=== PATIENT | male | born 2000 | race African-American/Black ===

== ENCOUNTER 2022-01-17 08:52 | Outpatient (CLI) | payer OTHER ==
[2022-01-17 10:14] VITALS: BP 146/70
--- NOTE | 2022-01-17 10:14 | SLEEP CARE CONSULTATION ---
Information from patient questionnaire entered by Donny Bah. I have reviewed and concur with the information entered by Donny Bah. This document represents the service I personally performed and the decisions made by me, Tamar Mercedes ARNP. History of Present Illness Service Date and Time: 01/17/2022 0852 Reason for Visit: New patient Chief Complaint: reports: Unrefreshed sleep, Snoring, Excessive daytime sleepiness, Frequent awakenings at night Date of Onset: ONE MONTH Usual bedtime: 830PM Time it takes to fall asleep: 1-2 HOURS Snores at night: Yes Observed to quit breathing while asleep: No Sleeps alone due to snoring: No Number of times waking at night: 3-5 Reasons for waking at night: reports: Bathroom, Other (unknown reason; sometimes waking up feeling short of breath with heart racing) Toss, Turn, or Twitch while sleeping: Yes Recalls having dreams: Yes Usually gets out of bed at: 5AM; weekends 07-0800 Feels refreshed in the morning: No Morning headache: Yes (RESOLVES 3-5 HOURS AFTER WAKING) Sleepy or fatigued during the day: Yes Ever fallen asleep while driving: No Takes day naps: No Dreams during day naps: No Prior sleep studies: No Additional HPI information: I had the pleasure of seeing GLADYS SHAH today regarding the possibility of him having a sleep disorder. His current complaints are unrefreshed sleep, snoring, excessive daytime sleepiness and frequent night awakenings. He states in the past month he has been waking up with headaches. He is waking up several times in the middle of the night and with a sore throat. He also wakes up with his throat dry at night and in the morning. His roommate has told him he snores loudly. The headaches are behind eye on the right side and last about 3-4 hours. He takes Tylenol or Ibuprofen for the headaches but this does not usually help much. He normally does not wake up feeling rested and is tired throughout the day. He does not normally take naps. He states he will occasionally wake himself up feeling short of air and his heart is racing. - Parasomnia Symptoms Ever been unable to move upon waking from sleep: No Walks in sleep: No Talks in sleep: No Ever acted out dreams in sleep: No Ever felt weak in the knees when startled or emotional: No Bothered by creepy, crawly, restless sensations in legs: No Problems with memory or concentration: Yes (hard to focus, more concentration) Subjective Initial [place] Sleepiness Scale score: 16 (01/2022) Social History The patient's occupation is a AM. Patient is Single and lives in . Have you smoked in the past 12 months: No Alcohol use: Yes Alcohol amount and frequency: 2 DRINKS, 2-3 TIMES PER WEEK Caffeine use: Yes Caffeine amount and frequency: 1 DRINK, 5 TIMES PER WEEK Family History Family history of sleep disordered breathing: Yes Family Hx Sleep Apnea: Mother: Snoring, Sibling: Snoring, Grandparent: Snoring Allergies and Home Medications Known drug allergies: No Drug allergies reviewed: Yes (NKDA) Home medication list reviewed: Yes (no daily medications or supplements) Allergy and home medication list: Medications: Ibuprofen, prn Tylenol, prn Review of Systems Weight loss over past 5 years: 50 POUNDS Cardiovascular: denies: high blood pressure Gastrointestinal: denies: heartburn Neurological: reports: headaches (HEADACHES ARE UPON WAKING). denies: head trauma Psychiatric: denies: Attention Deficit Hyperactivity, anxiety, depression Ear/Nose/Throat: reports: dry mouth/throat (DRY MOUTH WHEN WAKING IN MIDDLE OF NIGHT OR MORNING), injury to nose (hit on nose, bloody, no fx when playing football in school), wisdom teeth removed. denies: tonsillectomy Endocrine: denies: thyroid disease Immunologic: denies: allergies to food or environment Physical Exam Vital signs obtained and entered by: MEGHANA, LAST PULLER Blood Pressure: 146/70 (RIGHT ARM ) Cuff size: regular Heart Rate: 94 O2 Saturation: 98 Height: 5 ft 6 in Weight: 173 lb Body Mass Index: 27.9 BMI Classification: Overweight Neck circumference: 15.25 (inches) Nostrils: patent to airflow Mouth and throat: normal Soft palate: long Hard palate: normal Uvula: normal, edematous Uvula visualization: 100% Mallampati Class I Tongue: normal in size Tonsils: small Neck: normal w/o lymphadenopathy or thyromegaly Heart: regular rate and rhythm Lungs: clear bilaterally Impression and Plan 1. Suspected Obstructive Sleep Apnea-Hypopnea Syndrome, as suggested by a history of loud and irregular snoring, morning headache, frequent awakening during the night, unrefreshed sleep, cognitive impairment, and excessive daytime sleepiness. Narrow oropharynx and obesity are common predisposing factors for obstructive sleep apnea-hypopnea syndrome. I recommend proceeding to polysomnography to confirm the diagnosis and to assess severity. If the patient has significant sleep disordered breathing, a manual CPAP titration study will also be performed to find the optimal treatment pressure. I informed the patient of what the sleep studies involve and after some discussion, obtained agreement to proceed. The pathophysiology of obstructive sleep apnea-hypopnea syndrome was discussed with the patient and health risks of cardiovascular and cerebrovascular disease if not treated. Risks of drowsy driving discussed in detail and patient advised to avoid long distance driving and to anchor tack puller at the first sign of drowsiness. Patient agreed to plan. * Schedule polysomnography * Avoid long distance driving or driving when feeling sleepy. * Avoid alcohol, sedative and muscle relaxant around bedtime. * Attempt to lose weight. * Review instructions provided by trained office staff on how to prepare for the sleep study. * Return for follow-up after sleep study completed. Counseling Topics: Weight loss health impact Visit Type: In Office Time Spent with Patient (minutes): 30 Provider Statement: I spent 100% of the Face to Face Visit with the patient with greater than 50% spent counseling the patient and coordination of care.
== END 2022-01-17 08:53 | disposition home or self-care (01) ==
LOC: SC 08:52
PROVIDERS: ATTEND Nurse Practitioner Family
DX: R06.83 Snoring (principal); G47.8 Other sleep disorders; R51.9 Headache, unspecified; G47.10 Hypersomnia, unspecified; E66.3 Overweight; Z68.27 Body mass index [BMI] 27.0-27.9, adult
CPT/HCPCS: 99203; 99212

== ENCOUNTER 2022-02-02 19:11 | Outpatient (CLI) | payer OTHER | END 2022-02-02 19:12 | disposition home or self-care (01) | LOC: SC 19:11 | PROVIDERS: ATTEND Nurse Practitioner Family | DX: G47.31 Primary central sleep apnea (principal); G47.61 Periodic limb movement disorder | CPT/HCPCS: 95810 ==

== ENCOUNTER 2022-02-18 14:26 | Outpatient (CLI) | payer OTHER ==
[2022-02-18 15:29] VITALS: BP 136/86
--- NOTE | 2022-02-18 15:29 | SLEEP CARE CONSULTATION ---
Information from patient questionnaire entered by Donny Bah. I have reviewed and concur with the information entered by Donny Bah. This document represents the service I personally performed and the decisions made by , Tamar Mercedes ARNP. History of Present Illness Service Date and Time: 02/18/2022 1426 Initial [place] Sleepiness Scale score: 16 (01/2022) Current [place] Sleepiness Scale score: 15 (02/18/22) Additional HPI information: GLADYS SHAH returns for follow up and results of the recently performed polysomnography. I explained the pathophysiology behind obstructive sleep apnea. We then spent quite a bit of time discussing different treatment options. For mild obstructive sleep apnea, surgery and oral appliance are alternatives to nasal CPAP therapy but in moderate or severe cases, nasal CPAP is the most effective and reliable treatment. Because apnea is primarily in supine position, then positional management therapy could be effective. Methods discussed such as positioning with pillows to prevent supine sleep. I reviewed the impact of weight changes on sleep apnea and strongly recommended losing weight. After some discussion, the patient opted to go with the nasal CPAP therapy. Nasal autoCPAP set at 4-15 cmH20 will be ordered with rationale explained. A manual titration study will be ordered if unable to find optimal pressure with office adjustments. I explained how CPAP machine works and what to expect when using the machine. Using CPAP every night in order to get used to it was emphasized. Patient advised to put CPAP mask on before getting into bed so as not to fall asleep without CPAP. To assist acclimation to CPAP use, it could also be used for a short time during day while reading or watching TV. The patient was instructed to call the CPAP supplier to discuss any mechanical problem that may occur. If the mask given is uncomfortable or is difficult to keep on through the night even with adjustment, contact the CPAP supplier as many will replace with another mask style if notified before 30 days. If snoring or perceives is not getting enough air or too much air from the machine, notify this office. Patient does not drink alcohol. Patient was cautioned about risks of drowsy driving until sleepiness symptoms resolve. Patient denies drowsy driving. Sleep Study - Results Type of Sleep Study: Polysomnography (DONE ON 02/02/22) Prior sleep studies: No Polysomnography/Home Sleep Study results: IMPRESSION: The quality of the study is good. The patient had reduced sleep efficiency due to frequent and prolonged awakenings all throughout the night. The sleep architecture was abnormal for sleep fragmentation and reduced amount of time spent in REM and slow wave sleep (N3). Respiratory monitoring showed moderate central sleep apnea-hypopnea (AHI = 27.6) associated with frequent arousals, oxyhemoglobin desaturation and mild hypoxia (tabatha oxygen saturation of 88%). The respiratory events occurred more frequently during supine sleep (supine AHI = 49.4; non-supine = 7.47). Snore was infrequent and light in intensity. There was severe periodic leg movement of sleep contributing to the sleep fragmentation. Cardiac rhythm was normal sinus rhythm without significant arrhythmia. No abnormal behavior (parasomnia) observed during the night. Allergies and Home Medications Home medication list reviewed: Yes (no changes) Review of Systems Review of systems same as previous: Yes (no changes) Physical Exam Vital signs obtained and entered by: FRANCY KOWALSKI Blood Pressure: 136/86 (right arm ) Cuff size: regular Heart Rate: 80 O2 Saturation: 98 Height: 5 ft 6 in Weight: 171 lb Body Mass Index: 27.6 BMI Classification: Overweight Impression and Plan 1. Central Sleep Apnea-Hypopnea Syndrome, moderate, with lowest oxygen saturation of 88%. Obviously this is the cause of the patients symptoms of unrefreshed sleep, and excessive daytime sleepiness. As mentioned above, the patient will be started on nasal autoCPAP therapy with pressure set at 4-15 cmH2 O. A manual titration study will be completed if unable to find optimal treatment pressure with office adjustments. Compliance guidelines also reviewed. A copy of compliance guidelines will be given for reference at check out. Because the apnea is more severe supine, I instructed to avoid sleeping supine using pillow positioning until able to start CPAP use. 2. Periodic limb movement, severe, that did contribute to fragmentation of patients sleep. Periodic limb movement of sleep (PLMS) is characterized by episodes of repetitive limb movements that occur during sleep and usually involve the lower limbs. Caffeine can aggravate PLMS and should be avoided. Sleep hygiene methods can also improve sleep as well as lifestyle changes such as regular exercise. Patient was advised that no treatment is needed at this time. If symptoms increase, then further evaluation is indicated. * Nasal auto CPAP therapy, pressure at 4-15 cm H2O. * Attempt to lose weight. * Avoid alcohol consumption near bedtime. * Avoid supine sleep until using CPAP. * The patient is again cautioned about driving until sleepiness completely resolves. * Return one month after CPAP obtained. I will assess response to therapy and compliance at that time. Counseling Topics: Sleeping position, Weight loss health impact Visit Type: In Office Time Spent with Patient (minutes): 21 Provider Statement: I spent 100% of the Face to Face Visit with the patient with greater than 50% spent counseling the patient and coordination of care.
== END 2022-02-18 14:27 | disposition home or self-care (01) ==
LOC: SC 14:26
PROVIDERS: ATTEND Nurse Practitioner Family
DX: G47.31 Primary central sleep apnea (principal); G47.61 Periodic limb movement disorder; E66.3 Overweight; Z68.27 Body mass index [BMI] 27.0-27.9, adult
CPT/HCPCS: 99212; 99213

== ENCOUNTER 2022-05-27 11:17 | Outpatient (CLI) | payer OTHER ==
[2022-05-27 11:54] VITALS: BP 142/92
--- NOTE | 2022-05-27 11:54 | SLEEP CARE CONSULTATION ---
Information from patient questionnaire entered by Rosalba Dias. I have reviewed and concur with the information entered by Rosalba Dias. This document represents the service I personally performed and the decisions made by , Tamar Mercedes ARNP. History of Present Illness Service Date and Time: 05/27/2022 1117 Previous diagnosis: Moderate, Central Sleep Apnea-Hypopnea Syndrome AHI: 27.6 (in 2021) Reason for follow up: first compliance Equipment type: CPAP (RESMED Airsense 11) Equipment obtained from: Other ([facility]; got initial supplies) Mask style: Full face Mask brand: [employer] (Luba) Backup mask available: No (will keep old mask when replaced) Last cushion change: 1 month+ Prior sleep studies: No Type of Sleep Study: Polysomnography (DONE ON 02/02/22) HPI additional information: GLADYS SHAH was diagnosed to have moderate, AHI 27.6, central sleep apnea- hypopnea syndrome and returned today for CPAP therapy first compliance follow- up. Sleep Study - Results Type of Sleep Study: Polysomnography (DONE ON 02/02/22) Prior sleep studies: No CPAP Compliance Data - Data Reviewed with Patient Average duration of nightly device use: 4 hours 49 minutes Compliance rate %: 87 (30/30 days used) Current pressure setting (cmH2O): 4-15 (median 5, avg 8.1, max 9.1) Average residual AHI: 6.6 Central apnea: 5.1 Obstructive apnea: 0.9 Average large leak: 0.2 LPM Subjective Patient concerns: reports: mask discomfort, mask leak noise, condensation in mask/hose (turned up humidity for dry mouth but turned back down and is resolved), nasal congestion. denies: aerophagia, air blowing in eyes, dry mouth, nose, throat, epistaxis Observed to snore while using device: No Current pressure setting perceived as: comfortable On therapy, patient: reports: sleeping better, awakening more refreshed, being more awake and alert during the day, more rested overall. denies: drowsiness while driving Initial [place] Sleepiness Scale score: 16 (01/2022) Current [place] Sleepiness Scale score: 1 (05/27/22) Allergies and Home Medications Known drug allergies: No Drug allergies reviewed: Yes (NKDA) Home medication list reviewed: Yes (no changes) Review of Systems Review of systems same as previous: Yes (no changes) Physical Exam Vital signs obtained and entered by: ROSALBA Zacarias MA Blood Pressure: 142/92 (LEFT ARM) Cuff size: regular Heart Rate: 102 O2 Saturation: 98 Height: 5 ft 6 in Weight: 168 lb 6.4 oz Weight change since last visit: 3 lb loss Body Mass Index: 27.1 BMI Classification: Overweight Impression and Plan 1. Central Sleep Apnea-Hypopnea Syndrome, moderate, with good treatment compliance and fair apnea control with mild elevation of residual AHI. On CPAP therapy, the patient has better sleep quality and is more rested overall. Patient has had some issues with his F&P Luba mask and would like to try a nasal cushion or pillows mask. I will write for a mask refitting for change in mask. He also has a slight elevation of his residual AHI with majority being central index at 5.1 and obstructive index at 0.9. The patients pressure will be changed to autoCPAP 5-7 cmH20 for elevation of residual AHI. Patient advised to contact me if pressure change is uncomfortable so that it can be adjusted. Goals for apnea control discussed. Patient's apnea severity and rationale for treatment to reduce apnea, improve sleep quality and reduce cardiovascular and cerebrovascular events was reviewed. 2. Overweight, unspecified. Currently patients BMI is 27.1. Patient has lost 3 pounds since starting the CPAP. Obesity increases the risk of apnea, CPAP pressure requirements and overall health risks especially cardiovascular and diabetes. Thus patient is advised to continue to try to lose weight. * Mask refitting for nasal cushion or pillows mask * Change auto CPAP pressure to 5-7 cmH2O * Notify me if snoring with mask or feeling that the pressure is too much or too little * Continue to try to lose weight * Call this office if any problems using CPAP * Return for follow up in 1-2 months, or sooner if concerns arise Counseling Topics: Spare mask, Weight loss health impact Visit Type: In Office Time Spent with Patient (minutes): 23 Provider Statement: I spent 100% of the Face to Face Visit with the patient with greater than 50% spent counseling the patient and coordination of care.
== END 2022-05-27 11:18 | disposition home or self-care (01) ==
LOC: SC 11:17
PROVIDERS: ATTEND Nurse Practitioner Family
DX: G47.31 Primary central sleep apnea (principal); E66.3 Overweight; Z68.27 Body mass index [BMI] 27.0-27.9, adult
CPT/HCPCS: 99212; 99213

== ENCOUNTER 2022-08-21 11:29 | Outpatient (CLI) | payer OTHER ==
[2022-08-21 10:34] VITALS: BP 130/72
--- NOTE | 2022-08-21 10:34 | SLEEP CARE CONSULTATION ---
Information from patient questionnaire entered by Rosalba Dias. I have reviewed and concur with the information entered by Rosalba Dias. This document represents the service I personally performed and the decisions made by , Tamar Mercedes ARNP. History of Present Illness Service Date and Time: 08/21/2022 1020 Previous diagnosis: Moderate, Central Sleep Apnea-Hypopnea Syndrome AHI: 27.6 (in 2021) Reason for follow up: other (2 MONTH FU ) Equipment type: CPAP (RESMED Airsense 11, s/u 02/2022) Equipment obtained from: Other ([facility]; getting supplies as needed) Mask style: Full face (Luba) Backup mask available: Yes (old mask) Last cushion change: 3 months Prior sleep studies: No Type of Sleep Study: Polysomnography (DONE ON 02/02/22) HPI additional information: GLADYS SHAH was diagnosed to have moderate, AHI 27.6, central sleep apnea- hypopnea syndrome and returns via video telehealth visit today for CPAP therapy two month follow-up. Sleep Study - Results Type of Sleep Study: Polysomnography (DONE ON 02/02/22) Prior sleep studies: No CPAP Compliance Data - Data Reviewed with Patient Average duration of nightly device use: 4 HRS 47 MIN Compliance rate %: 73 (06/21/22-08/19/22; days used) Current pressure setting (cmH2O): 5-7 (median 5.7, avg 6.8, max 6.9) Average residual AHI: 7.1 Central apnea: 4.6 Obstructive apnea: 1.6 Hypopnea: 0.6 Subjective Patient concerns: denies: aerophagia, mask discomfort, air blowing in eyes, mask leak noise, condensation in mask/hose, nasal congestion, dry mouth, nose, throat, epistaxis Observed to snore while using device: No Current pressure setting perceived as: comfortable On therapy, patient: reports: sleeping better, awakening more refreshed, being more awake and alert during the day, more rested overall. denies: drowsiness while driving Initial [place] Sleepiness Scale score: 16 (01/2022) Current [place] Sleepiness Scale score: 7 Allergies and Home Medications Known drug allergies: No Drug allergies reviewed: Yes Home medication list reviewed: Yes (no changes) Review of Systems Review of systems same as previous: Yes (no changes) Physical Exam Vital signs obtained and entered by: ROSALBA Zacarias MA Blood Pressure: 130/72 (per pt) Height: 5 ft 6 in Weight: 170 lb (per pt) Body Mass Index: 27.4 BMI Classification: Overweight Impression and Plan 1. Central Sleep Apnea-Hypopnea Syndrome, moderate, with good treatment complian ce and fair apnea control. On CPAP therapy, the patient has better sleep quality and is more rested overall. Patient has significant improvement of their sleep apnea and is satisfied with current CPAP therapy. Patient's CI is 4.6, OI 16 and HI 0.6 with minimal large leaks. The patients pressure will be changed to autoCPAP 6-8 cmH20 for elevation of residual AHI. Patient advised to contact me if pressure change is uncomfortable so that it can be adjusted. Goals for apnea control discussed. Patient denies problems with oral dryness, nasal congestion, epistaxis, skin irritation or aerophagia. Patient's apnea severity and rationale for treatment to reduce apnea, improve sleep quality and reduce cardiovascular and cerebrovascular events was reviewed. 2. Overweight, unspecified. Currently patients BMI is 27.4. He is trying to lose weight using a diet that is cutting out white flour, etc and fats. Obesity increases the risk of apnea, CPAP pressure requirements and overall health risks especially cardiovascular and diabetes. Thus patient is advised to continue to try to lose weight. * Change auto CPAP pressure to 6-8 cmH2O * Notify me if snoring with mask or feeling that the pressure is too much or too little * Attempt to lose weight * Call this office if any problems using CPAP * Return for follow up in 3 months, or sooner if concerns arise Counseling Topics: Spare mask, Weight loss health impact Visit Type: Telehealth Video Video Type: Doximity Patient Location: Home (in car) Location of Provider: Office Patient agrees and consents to this telehealth visit type: Yes Patient agrees to have their insurance billed: Yes Time Spent with Patient (minutes): 11 Provider Statement: I spent 100% of the Telehealth Video Call with the patient with greater than 50% spent counseling the patient and coordination of care.
== END 2022-08-21 11:30 | disposition home or self-care (01) ==
LOC: SC 11:29
PROVIDERS: ATTEND Nurse Practitioner Family
DX: G47.31 Primary central sleep apnea (principal); E66.3 Overweight; Z68.27 Body mass index [BMI] 27.0-27.9, adult

== ENCOUNTER 2022-10-23 15:00 | Outpatient (CLI) | payer OTHER ==
--- NOTE | 2022-10-23 14:36 | SLEEP CARE CONSULTATION ---
Information from patient questionnaire entered by Rosalba Dias. I have reviewed and concur with the information entered by Rosalba Dias. This document represents the service I personally performed and the decisions made by me, Tamar Mercedes ARNP. History of Present Illness Service Date and Time: 10/23/2022 1400 Previous diagnosis: Moderate, Central Sleep Apnea-Hypopnea Syndrome AHI: 27.6 (in 2021) Reason for follow up: other (3 MONTH F/U) Equipment type: CPAP (RESMED Airsense 11, s/u 02/2022) Equipment obtained from: Other ([facility]; getting supplies as needed) Mask style: Full face (Luba) Backup mask available: Yes (old mask) Last cushion change: a month Prior sleep studies: No Type of Sleep Study: Polysomnography (DONE ON 02/02/22) HPI additional information: GLADYS SHAH was diagnosed to have moderate, AHI 27.6, central sleep apnea- hypopnea syndrome and returns via video telehealth visit today for CPAP therapy three month follow-up. Sleep Study - Results Type of Sleep Study: Polysomnography (DONE ON 02/02/22) Prior sleep studies: No CPAP Compliance Data - Data Reviewed with Patient Average duration of nightly device use: 5 HRS 38 MINS Compliance rate %: 84 (07/23/22-10/20/22; 89/90 days used) Current pressure setting (cmH2O): 4-6.4 Average residual AHI: 7.2 Central apnea: 4.9 Obstructive apnea: 1.5 Hypopnea: 0.6 Subjective Patient concerns: reports: mask discomfort, other (skin redness and soreness where cushion touches face). denies: aerophagia, air blowing in eyes, mask leak noise, condensation in mask/hose, nasal congestion, dry mouth, nose, throat Observed to snore while using device: No Current pressure setting perceived as: comfortable On therapy, patient: reports: sleeping better, awakening more refreshed, being more awake and alert during the day, more rested overall. denies: drowsiness while driving Initial [place] Sleepiness Scale score: 16 (01/2022) Current [place] Sleepiness Scale score: 8 (10/23/22) Allergies and Home Medications Known drug allergies: No Drug allergies reviewed: Yes Home medication list reviewed: Yes (Buspirone 15 mg BID) Review of Systems Review of systems same as previous: Yes (no changes) Physical Exam Vital signs obtained and entered by: ROSALBA Zacarias MA Blood Pressure: 123/64 (PER PT) Height: 5 ft 5 in (PER PT) Weight: 165 lb (PER PT) Body Mass Index: 27.4 BMI Classification: Overweight Impression and Plan 1. Central Sleep Apnea-Hypopnea Syndrome, moderate, with good treatment compliance and fair apnea control with mildly elevated residual AHI. On CPAP therapy, the patient has better sleep quality and is more rested overall. Patient has been getting sore with redness where the fullface cushion touches his skin. He states he washes the cushion about every other day. I encouraged him to wash the cushion nightly and look into skin barriers online. I also talked to him about getting a titration study. He has significant improvement of his sleep apnea but current pressure setting is suboptimal at this time. He voi mikayla understanding and agreement with this plan. Patient's apnea severity and rationale for treatment to reduce apnea, improve sleep quality and reduce cardiovascular and cerebrovascular events was reviewed. 2. Overweight, unspecified. Currently patients BMI is 27.4. Obesity increases the risk of apnea, CPAP pressure requirements and overall health risks especially cardiovascular and diabetes. Thus patient is advised to lose weight. * Continue auto CPAP pressure at 4-6.4 cmH2O * Titration study * Notify me if snoring with mask or feeling that the pressure is too much or too little * Attempt to lose weight * Call this office if any problems using CPAP * Return for follow up after titration study, or sooner if concerns arise Counseling Topics: Spare mask, Weight loss health impact Visit Type: Telehealth Video Video Type: Isamar Patient Location: Home Location of Provider: Office Patient agrees and consents to this telehealth visit type: Yes Patient agrees to have their insurance billed: Yes Time Spent with Patient (minutes): 20 Provider Statement: I spent 100% of the Telehealth Video Call with the patient with greater than 50% spent counseling the patient and coordination of care.
[2022-10-23 14:40] VITALS: BP 123/64
== END 2022-10-23 15:01 | disposition home or self-care (01) ==
LOC: SC 15:00
PROVIDERS: ATTEND Nurse Practitioner Family
DX: G47.31 Primary central sleep apnea (principal); E66.3 Overweight; Z68.27 Body mass index [BMI] 27.0-27.9, adult

== ENCOUNTER 2023-06-24 14:15 | Outpatient (CLI) | payer OTHER ==
--- NOTE | 2023-06-24 10:24 | SLEEP CARE CONSULTATION ---
Information from patient questionnaire entered by Rosalba Dias. I have reviewed and concur with the information entered by Rosalba Dias. This document represents the service I personally performed and the decisions made by , Tamar Mercedes ARNP. History of Present Illness Service Date and Time: 06/24/2023 0840 Previous diagnosis: Moderate, Central Sleep Apnea-Hypopnea Syndrome AHI: 27.6 (in 2021) Reason for follow up: other (7 MONTH F/U) Equipment type: CPAP (RESMED Airsense 11, s/u 02/2022) Equipment obtained from: Other ([facility]; getting supplies as needed) Mask style: Full face (Luba) Backup mask available: Yes Last cushion change: 2 days ago Prior sleep studies: No Type of Sleep Study: Polysomnography (DONE ON 02/02/22) HPI additional information: GLADYS SHAH was diagnosed to have moderate, AHI 27.6, central sleep apnea- hypopnea syndrome and returns via telephone appointment today for CPAP therapy seven month follow-up. Sleep Study - Results Type of Sleep Study: Polysomnography (DONE ON 02/02/22) Prior sleep studies: No CPAP Compliance Data - Data Reviewed with Patient Average duration of nightly device use: 5 HRS 52 MINS Compliance rate %: 75 (484710-40/03/24; 205/212 days used) Current pressure setting (cmH2O): 4-6.4 Average residual AHI: 7.8 Central apnea: 5.9 Obstructive apnea: 1.1 Hypopnea: 0.6 Average large leak: 0.8 L/min Subjective Missed days of use due to: reports: travel (deployment) Patient concerns: reports: dry mouth, nose, throat (dry mouth). denies: aerophagia, mask discomfort, air blowing in eyes, mask leak noise, condensation in mask/hose, nasal congestion, epistaxis Observed to snore while using device: No Current pressure setting perceived as: comfortable On therapy, patient: reports: sleeping better, awakening more refreshed, being more awake and alert during the day, more rested overall. denies: drowsiness while driving Initial [place] Sleepiness Scale score: 16 (01/2022) Current [place] Sleepiness Scale score: 10 (06/24/23) Allergies and Home Medications Known drug allergies: No Drug allergies reviewed: Yes Home medication list reviewed: Yes (Trazodone prn) Allergy and home medication list: Allergies No Known Drug Allergies Allergy (Verified 06/22/23 09:39) Home Medications Medication Instructions Recorded Confirmed Last Taken Type busPIRone [Buspar] See Rx Instructions .ROUTE .COMPLEX 10/23/22 06/24/23 Unknown History traZODone [Desyrel] See Rx Instructions .ROUTE .COMPLEX 06/24/23 06/24/23 Unknown History Review of Systems Review of systems same as previous: Yes (NO CHANGE) Physical Exam Vital signs obtained and entered by: ROSALBA Zacarias MA Height: 5 ft 4 in (PER PT) Weight: 170 lb (PER PT) Body Mass Index: 29.2 BMI Classification: Overweight Impression and Plan 1. Central Sleep Apnea-Hypopnea Syndrome, moderate, with good treatment compliance and fair apnea control with elevated residual AHI. On CPAP therapy, the patient has better sleep quality and is more rested overall. He continues to have elevated central index at 5.9. His obstructive index is at 1.1 and hypopnea index at 0.6. Patient's pressure setting is still not optimal to control sleep apnea. I advised patient that a titration study will be next step to determine a more optimal pressure setting. He voiced understanding and agreement. Patient's apnea severity and rationale for treatment to reduce apnea, improve sleep quality and reduce cardiovascular and cerebrovascular events was reviewed. 2. Overweight, unspecified. Currently patients BMI is 29.2. Obesity increases the risk of apnea, CPAP pressure requirements and overall health risks especially cardiovascular and diabetes. Thus patient is advised to lose weight. * Continue auto CPAP pressure at 4-6.4 cmH2O * Titration study * Notify me if snoring with mask or feeling that the pressure is too much or too little * Attempt to lose weight * Call this office if any problems using CPAP * Return for follow up after titration study, or sooner if concerns arise Counseling Topics: Spare mask, Weight loss health impact Follow up with Sleep Care in: other (after titration study) Visit Type: Telehealth Phone Video Type: Doximity Patient Location: out [facility] Location of Provider: Office Patient agrees and consents to this telehealth visit type: Yes Patient agrees to have their insurance billed: Yes Time Spent with Patient (minutes): 13 Provider Statement: I spent 100% of the Telehealth Phone Call with the patient with greater than 50% spent counseling the patient and coordination of care.
== END 2023-06-24 14:16 | disposition home or self-care (01) ==
LOC: SC 14:15
PROVIDERS: ATTEND Nurse Practitioner Family
DX: G47.31 Primary central sleep apnea (principal); E66.3 Overweight; Z68.29 Body mass index [BMI] 29.0-29.9, adult
CPT/HCPCS: 99442

== ENCOUNTER 2023-07-22 19:23 | Outpatient (CLI) | payer OTHER | END 2023-07-22 19:24 | disposition home or self-care (01) | LOC: SC 19:23 | PROVIDERS: ATTEND Nurse Practitioner Family | DX: G47.33 Obstructive sleep apnea (adult) (pediatric) (principal); G47.61 Periodic limb movement disorder | CPT/HCPCS: 95811 ==

== ENCOUNTER 2023-08-11 09:11 | Outpatient (CLI) | payer OTHER ==
--- NOTE | 2023-08-11 09:37 | Sleep Patient Instructions ---
Sleep Center Visit Summary - Patient Visit Information Reason for Visit: Titration study follow-up - Patient Instructions Additional Instructions: You returned to office after titration study. You are being continued on CPAP therapy with pressure setting at 6 cmH2O. You may call the office with any concerns about pressure feeling too low or too much for adjustment, if needed. Please call office to schedule a follow up appointment in the sleep care office in 3 months. - Clinic Information Contact: [facility] [address] [place] [id number] [email or web address] T: [phone]
--- NOTE | 2023-08-11 09:43 | SLEEP CARE CONSULTATION ---
Information from patient questionnaire entered by Rosalba Dias. I have reviewed and concur with the information entered by Rosalba Dias. This document represents the service I personally performed and the decisions made by , Tamar Mercedes ARNP. History of Present Illness Service Date and Time: 08/11/2023 0911 Initial [place] Sleepiness Scale score: 16 (01/2022) Current [place] Sleepiness Scale score: 8 Additional HPI information: GLADYS SHAH returns for follow up of the sleep study with a manual CPAP titration study performed on 07/22/23. Previous study done on 02/02/2022 showed moderate central sleep apnea with AHI 27.6. The patient was informed of the following polysomnography findings: CPAP was initiated at 5 cmH2O and titrated up to CPAP at 9 cmH2O. CPAP at 6 cmH2O appeared to be optimal (AHI of 1.7 per hour on the pressure). There was supine REM sleep on the pressure. Oxygen saturation was normal throughout the night. The patient appeared to have tolerated positive airway pressure therapy very well. He has mild PLMs contributing to sleep fragmentation. Patient is current on a CPAP and will continue with CPAP therapy with pressure set at 6 cmH2O. Patient does not drink alcohol. Patient was cautioned about risks of drowsy driving until sleepiness symptoms resolve. Patient denies drowsy driving. Sleep Study - Results Type of Sleep Study: Polysomnography (DONE ON 02/02/22 TITRATION COMPLETED 07/22/23) Prior sleep studies: No Polysomnography/Home Sleep Study results: IMPRESSION: The quality of the study is good. CPAP was initiated at 5 cmH2O and titrated up to CPAP at 9 cmH2O. CPAP at 6 cmH2O appeared to be optimal (AHI of 1.7 per hour on the pressure). There was supine REM sleep on the pressure. Oxygen saturation was normal throughout the night. The patient appeared to have tolerated positive airway pressure therapy very well. The patients sleep efficiency was normal. Except for mild sleep fragmentation, the sleep architecture was also normal. There was mild periodic leg movement of sleep contributing to the sleep fragmentation. Cardiac rhythm was normal sinus rhythm without significant arrhythmia. No abnormal behavior (parasomnia) observed during the night. Allergies and Home Medications Known drug allergies: No Drug allergies reviewed: Yes Home medication list reviewed: Yes (no changes) Allergy and home medication list: Allergies No Known Drug Allergies Allergy (Verified 08/07/23 09:43) Review of Systems Review of systems same as previous: Yes (no changes) Physical Exam Vital signs obtained and entered by: TAMAR BLUM Blood Pressure: 139/85 Cuff size: regular (left arm) Heart Rate: 85 O2 Saturation: 100 Height: 5 ft 4 in (PER PT) Weight: 192 lb 9.6 oz Body Mass Index: 33.0 BMI Classification: Obese Impression and Plan 1. Central Sleep Apnea-Hypopnea Syndrome, moderate. He returns after titration study to find optimal pressure for his CPAP therapy. His optimal pressure was shown to be 6 cmH2O. Patient called with desire for pressure to be changed to this pressure on 08/07/23 and it was done for patient comfort. In the office today, he says he sometimes feels some air hunger in middle of night. I will adjust his pressure to 6-8 cmH2O for air hunger. He will call if pressure becomes uncomfortable or continues to have air hunger. On CPAP therapy, the patient has better sleep quality and is more rested overall. Patient's apnea severity and rationale for treatment to reduce apnea, improve sleep quality and reduce cardiovascular and cerebrovascular events was reviewed. 2. Periodic limb movement, mild, that did contribute to fragmentation of the patients sleep. Periodic limb movement of sleep (PLMS) is characterized by episodes of repetitive limb movements that occur during sleep and usually involve the lower limbs. The etiology is unknown. Sleep hygiene methods can also improve sleep as well as lifestyle changes such as regular exercise. Patient was advised that no treatment is needed at this time. If symptoms increase, then further evaluation is indicated. 3. Obesity, unspecified. Currently patients BMI is 33. Obesity increases the risk of apnea, CPAP pressure requirements and overall health risks especially cardiovascular and diabetes. Thus patient is advised to lose weight. * Change to APAP pressure to 6-8 cmH2O * He was fitted to a [employer] Eson nasal mask size medium and wants to continue with this nasal mask * Notify me if snoring with mask or feeling that the pressure is too much or too little * Attempt to lose weight * Call this office if any problems using CPAP * Return for follow up in 3 months, or sooner if concerns arise Adjust device pressure to (cmH2O): 6-8 Counseling Topics: Weight loss health impact Follow up with Sleep Care in: 3 months Visit Type: In Office Time Spent with Patient (minutes): 21 Provider Statement: I spent 100% of the Face to Face Visit with the patient with greater than 50% spent counseling the patient and coordination of care.
[2023-08-11 09:45] VITALS: BP 139/85; O2SAT 100
== END 2023-08-11 09:12 | disposition home or self-care (01) ==
LOC: SC 09:11
PROVIDERS: ATTEND Nurse Practitioner Family
DX: G47.31 Primary central sleep apnea (principal); G47.61 Periodic limb movement disorder; E66.9 Obesity, unspecified; Z68.33 Body mass index [BMI] 33.0-33.9, adult
CPT/HCPCS: 99212; 99213

== ENCOUNTER 2023-12-25 14:48 | Outpatient (CLI) | payer OTHER ==
--- NOTE | 2023-12-25 15:21 | Sleep Patient Instructions ---
Sleep Center Visit Summary - Patient Visit Information Reason for Visit: 5-month follow-up for Pap therapy - Patient Instructions Additional Instructions: You were here for follow up of CPAP therapy. You will be continued on CPAP therapy with pressure at 4-7 cmH2O. Please let us know if the pressure change is uncomfortable and we can make further adjustments of the pressure. You should follow up with sleep care in 1-2 months. You may contact us sooner for any questions or concerns. - Clinic Information Contact: [facility] [address] [place] [address] [email or web address] T: [phone]
--- NOTE | 2023-12-25 15:25 | SLEEP CARE CONSULTATION ---
Information from patient questionnaire entered by Rosalba Dias. I have reviewed and concur with the information entered by Rosalba Dias. This document represents the service I personally performed and the decisions made by , Tamar Mercedes ARNP. History of Present Illness Service Date and Time: 12/25/2023 1448 Previous diagnosis: Moderate, Central Sleep Apnea-Hypopnea Syndrome AHI: 27.6 (in 2021) Reason for follow up: other (5 MONTH F/U) Equipment type: CPAP (RESMED Airsense 11, s/u 02/2022) Equipment obtained from: Other ([facility]; getting supplies as needed) Mask style: Nasal Mask brand: [employer] (Eson, medium cushion) Backup mask available: Yes Last cushion change: last week Prior sleep studies: No Type of Sleep Study: Polysomnography (DONE ON 02/02/22 TITRATION COMPLETED 07/22/23) HPI additional information: GLADYS SHAH was diagnosed to have moderate, AHI 27.6, central sleep apnea- hypopnea syndrome and returned today for CPAP therapy five month follow-up. Sleep Study - Results Type of Sleep Study: Polysomnography (DONE ON 02/02/22 TITRATION COMPLETED 07/22/23) Prior sleep studies: No CPAP Compliance Data - Data Reviewed with Patient Average duration of nightly device use: 3 HRS 42 MINS Compliance rate %: 34 (08/11/23-12/19/23; 107/131 days used) Current pressure setting (cmH2O): 6-8 Average residual AHI: 5.7 Central apnea: 4.2 Obstructive apnea: 1 Hypopnea: 0.4 Average large leak: 0.1 L/min Subjective Missed days of use due to: reports: mask issues, illness Patient concerns: reports: mask discomfort, condensation in mask/hose (adjusted to 80 and was better last night), nasal congestion. denies: aerophagia, air blowing in eyes, mask leak noise, dry mouth, nose, throat, epistaxis Observed to snore while using device: No Current pressure setting perceived as: too low On therapy, patient: reports: sleeping better, awakening more refreshed, being more awake and alert during the day, more rested overall. denies: drowsiness while driving Initial [place] Sleepiness Scale score: 16 (01/2022) Current [place] Sleepiness Scale score: 9 (12/25/23) Allergies and Home Medications Known drug allergies: No Drug allergies reviewed: Yes Home medication list reviewed: Yes (as listed) Allergy and home medication list: Allergies No Known Drug Allergies Allergy (Verified 11/06/23 09:35) Home Medications Amitriptyline HCl See Rx Instructions .ROUTE .COMPLEX 12/25/23 [History Confirmed 12/25/23] FLUoxetine [PROzac] See Rx Instructions .ROUTE .COMPLEX 12/25/23 [History Confirmed 12/25/23] Levothyroxine Sodium See Rx Instructions .ROUTE .COMPLEX 12/25/23 [History Confirmed 12/25/23] amLODIPine [Norvasc] See Rx Instructions .ROUTE .COMPLEX 12/25/23 [History Confirmed 12/25/23] Review of Systems Review of systems same as previous: No (ADJUSTMENT DISORDER, LAZARA THYROIDITIS, GERD, HYPERTENSION ) Physical Exam Vital signs obtained and entered by: ROSALBA Zacarias MA Blood Pressure: 160/90 (LEFT ARM) Cuff size: regular Heart Rate: 104 O2 Saturation: 100 Height: 5 ft 4 in Weight: 200 lb Body Mass Index: 34.3 BMI Classification: Obese Impression and Plan 1. Central Sleep Apnea-Hypopnea Syndrome, moderate, with fair treatment compliance and good apnea control with minimal elevation of residual AHI. On CPAP therapy, the patient has better sleep quality and is more rested overall. He has been having issues with condensation in his mask limiting his use. He adjusted his heated hose up last night and it reduced. He is going to increase it again tonight to see if the condensation resolves. His AHI is still slightly elevated with the central index at 4.2. The patients pressure will be changed to autoCPAP 4-7 cmH20 for elevation of residual AHI. Patient advised to contact me if pressure change is uncomfortable so that it can be adjusted. Goals for apnea control discussed. Patient's apnea severity and rationale for treatment to reduce apnea, improve sleep quality and reduce cardiovascular and cerebrovascular events was reviewed. I also reviewed the benefit of consistent device use of CPAP for hypertension, gastric reflux. 2. Obesity, unspecified. Currently patients BMI is 34.3. Obesity increases the risk of apnea, CPAP pressure requirements and overall health risks especially cardiovascular and diabetes. Thus patient is advised to lose weight. * Change auto CPAP pressure to 4-7 cmH2O * Notify me if snoring with mask or feeling that the pressure is too much or too little * Attempt to lose weight * Call this office if any problems using CPAP * Return for follow up in 1-2 months, or sooner if concerns arise Adjust device pressure to (cmH2O): 4-7 Counseling Topics: Weight loss health impact Follow up with Sleep Care in: 1-2 months Visit Type: In Office Time Spent with Patient (minutes): 25 Provider Statement: I spent 100% of the Face to Face Visit with the patient with greater than 50% spent counseling the patient and coordination of care.
[2023-12-25 15:29] VITALS: BP 160/90; O2SAT 100
== END 2023-12-25 14:49 | disposition home or self-care (01) ==
LOC: SC 14:48
PROVIDERS: ATTEND Nurse Practitioner Family
DX: G47.31 Primary central sleep apnea (principal); E66.9 Obesity, unspecified; Z68.34 Body mass index [BMI] 34.0-34.9, adult
CPT/HCPCS: 99212; 99213

== ENCOUNTER 2024-02-01 12:45 | Outpatient (CLI) | payer OTHER ==
--- NOTE | 2024-02-02 15:53 | XRAY Report ---
PROCEDURE: Knee 3V LT INDICATIONS: SPRAIN OF OTHER SPECIFIED PARTS OF LT KNEE TECHNIQUE: 3 views of the knee was obtained. COMPARISON: None FINDINGS: Bones: No fractures or dislocations. No suspicious bony lesions. Soft tissues: No knee joint effusion. No suspicious soft tissue calcifications or masses. IMPRESSION: Unremarkable knee radiographs Reviewed by: Bernard Olmos MD on 02/02/2024 2:52 PM AKDT Approved by: Bernard Olmos MD on 02/02/2024 2:52 PM AKDT Station ID: [id number]
== END 2024-02-01 13:00 | disposition home or self-care (01) ==
LOC: DI.N 12:45
PROVIDERS: ATTEND Family Medicine
DX: S83.8X2A Sprain of other specified parts of left knee, initial encounter (principal)